=== PATIENT | female | born 1995 | race Caucasian/White ===

== ENCOUNTER 2017-07-18 19:30 | Emergency (ER) | payer SELFPAY ==
[~2017-07-18] VITALS: Ht 157.5 cm; Wt 55.0 kg
[~2017-07-18 19:30] MED LIST: AZIT200S PO; Z.0.NO CURRENT MEDS
--- NOTE | 2017-07-18 19:48 | PD ---
HPI Chief Complaint: Psychiatric Symptoms Time Seen by Provider: 19:44 Travel History International Travel<30 days: No Contact w/Intl Traveler<30days: No History of Present Illness HPI Patient is a 22-year-old female presenting to the emergency department under [place] act for psychiatric evaluation. Patient broke up with her boyfriend today , she states it was a bad breakup. She reportedly told the boyfriend she was going to shoot herself. At that time patient had access to a firearm. Apparently the firearm has been removed from patient's custody. Patient denies any previous suicide attempt, she denies any psychiatric history. She further denies any drug or alcohol use. She has no complaints of pain today. Patient is on Depo-Provera, she is due for another injection in July. She denies any chance of . 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 She has no significant past medical history. Onset of symptoms is unknown. PFSH Past Medical History Medical History: Denies Significant Hx Past Surgical History Surgical History: No Previous Surgery Social History Alcohol Use: No Tobacco Use: No Substance Use: No Allergies-Medications (Allergen,Severity, Reaction): Coded Allergies: No Known Allergies (Verified Allergy, Mild, 03/09/07) nickel (Verified Allergy, Unknown, 07/18/17) Reported Meds & Prescriptions Reported Meds & Active Scripts Active Keflex (Cephalexin) 500 Mg Cap 500 Mg PO Q12H 7 Days Reported Depo-Provera Inj (Medroxyprogesterone Inj) 150 Mg/Ml Inj 150 Mg IM Q90D Review of Systems Except as stated in HPI: all other systems reviewed are Neg Psychiatric: Positive: Suicidal Ideations Physical Exam Narrative GENERAL: Well-developed, well-nourished, alert female. Presenting in no acute distress. SKIN: Warm and dry. HEAD: Atraumatic. Normocephalic. EYES: Pupils equal and round. No scleral icterus. No injection or drainage. ENT: No nasal bleeding or discharge. Mucous membranes pink and moist. NECK: Trachea midline. No JVD. CARDIOVASCULAR: Regular rate and rhythm. RESPIRATORY: No accessory muscle use. Clear to auscultation. Breath sounds equal bilaterally. GASTROINTESTINAL: Abdomen soft, non-tender, nondistended. Hepatic and splenic margins not palpable. MUSCULOSKELETAL: Extremities without clubbing, cyanosis, or edema. No obvious deformities. NEUROLOGICAL: Awake and alert. No obvious cranial nerve deficits. Motor grossly within normal limits. Five out of 5 muscle strength in the arms and legs. Normal speech. PSYCHIATRIC: Anxious mood and affect; insight and judgment normal. Data Data Last Documented VS Vital Signs Date Time Temp Pulse Resp B/P (MAP) Pulse Ox O2 Delivery O2 Flow Rate FiO2 07/18/17 19:50 98.4 105 18 125/86 (99) 100 Orders Orders Complete Blood Count With Diff (07/18/17 19:44) Comprehensive Metabolic Panel (07/18/17 19:44) Thyroid Stimulating Hormone (07/18/17 19:44) Urinalysis - C+S If Indicated (07/18/17:44) Psych Screen (07/18/17:44) Drug Screen, Random Urine (07/18/17 19:44) Alcohol (Ethanol) (07/18/17 19:44) Salicylates (Aspirin) (07/18/17 19:44) Tylenol (Acetaminophen) (07/18/17 19:44) Urine Culture (07/18/17 20:09) Cephalexin (Keflex) (07/18/17 21:30) Labs Laboratory Tests Test 07/18/17 20:02 07/18/17 20:09 White Blood Count 12.0 TH/MM3 Red Blood Count 4.66 MIL/MM3 Hemoglobin 13.5 GM/DL Hematocrit 40.8 % Mean Corpuscular Volume 87.4 FL Mean Corpuscular Hemoglobin 28.9 PG Mean Corpuscular Hemoglobin Concent 33.1 % Red Cell Distribution Width 13.2 % Platelet Count 289 TH/MM3 Mean Platelet Volume 9.4 FL Neutrophils (%) (Auto) 77.9 % Lymphocytes (%) (Auto) 16.0 % Monocytes (%) (Auto) 5.3 % Eosinophils (%) (Auto) 0.2 % Basophils (%) (Auto) 0.6 % Neutrophils # (Auto) 9.3 TH/MM3 Lymphocytes # (Auto) 1.9 TH/MM3 Monocytes # (Auto) 0.6 TH/MM3 Eosinophils # (Auto) 0.0 TH/MM3 Basophils # (Auto) 0.1 TH/MM3 CBC Comment DIFF FINAL Differential Comment Blood Urea Nitrogen 5 MG/DL Creatinine 0.74 MG/DL Random Glucose 93 MG/DL Total Protein 8.1 GM/DL Albumin 4.3 GM/DL Calcium Level 9.2 MG/DL Alkaline Phosphatase 97 U/L Aspartate Amino Transf (AST/SGOT) 24 U/L Alanine Aminotransferase (ALT/SGPT) 32 U/L Total Bilirubin 0.6 MG/DL Sodium Level 141 MEQ/L Potassium Level 3.7 MEQ/L Chloride Level 109 MEQ/L Carbon Dioxide Level 22.1 MEQ/L Anion Gap 10 MEQ/L Estimat Glomerular Filtration Rate 98 ML/MIN Thyroid Stimulating Hormone 3rd Gen 2.230 uIU/ML Salicylates Level LESS THAN 1.7 MG/DL Acetaminophen Level LESS THAN 2.0 MCG/ML Ethyl Alcohol Level LESS THAN 3 MG/DL Urine Color YELLOW Urine Turbidity CLOUDY Urine pH 7.5 Urine Specific [place] 1.013 Urine Protein NEG mg/dL Urine Glucose (UA) NEG mg/dL Urine Ketones NEG mg/dL Urine Occult Blood NEG Urine Nitrite POS Urine Bilirubin NEG Urine Urobilinogen LESS THAN 2.0 MG/DL Urine Leukocyte Esterase MOD Urine RBC 6 /hpf Urine WBC 14 /hpf Urine Squamous Epithelial Cells 1 /hpf Urine Amorphous Sediment OCC Urine Bacteria MANY /hpf Urine Mucus MOD /lpf Microscopic Urinalysis Comment CULTURE INDICATED Urine Opiates Screen NEG Urine Barbiturates Screen NEG Urine Amphetamines Screen NEG Urine Benzodiazepines Screen NEG Urine Cocaine Screen NEG Urine Cannabinoids Screen NEG MDM Medical Decision Making Medical Screen Exam Complete: Yes Emergency Medical Condition: Yes Interpretation(s) Laboratory Tests Test 07/18/17 20:02 07/18/17 20:09 White Blood Count 12.0 TH/MM3 Red Blood Count 4.66 MIL/MM3 Hemoglobin 13.5 GM/DL Hematocrit 40.8 % Mean Corpuscular Volume 87.4 FL Mean Corpuscular Hemoglobin 28.9 PG Mean Corpuscular Hemoglobin Concent 33.1 % Red Cell Distribution Width 13.2 % Platelet Count 289 TH/MM3 Mean Platelet Volume 9.4 FL Neutrophils (%) (Auto) 77.9 % Lymphocytes (%) (Auto) 16.0 % Monocytes (%) (Auto) 5.3 % Eosinophils (%) (Auto) 0.2 % Basophils (%) (Auto) 0.6 % Neutrophils # (Auto) 9.3 TH/MM3 Lymphocytes # (Auto) 1.9 TH/MM3 Monocytes # (Auto) 0.6 TH/MM3 Eosinophils # (Auto) 0.0 TH/MM3 Basophils # (Auto) 0.1 TH/MM3 CBC Comment DIFF FINAL Differential Comment Blood Urea Nitrogen 5 MG/DL Creatinine 0.74 MG/DL Random Glucose 93 MG/DL Total Protein 8.1 GM/DL Albumin 4.3 GM/DL Calcium Level 9.2 MG/DL Alkaline Phosphatase 97 U/L Aspartate Amino Transf (AST/SGOT) 24 U/L Alanine Aminotransferase (ALT/SGPT) 32 U/L Total Bilirubin 0.6 MG/DL Sodium Level 141 MEQ/L Potassium Level 3.7 MEQ/L Chloride Level 109 MEQ/L Carbon Dioxide Level 22.1 MEQ/L Anion Gap 10 MEQ/L Estimat Glomerular Filtration Rate 98 ML/MIN Thyroid Stimulating Hormone 3rd Gen 2.230 uIU/ML Salicylates Level LESS THAN 1.7 MG/DL Acetaminophen Level LESS THAN 2.0 MCG/ML Ethyl Alcohol Level LESS THAN 3 MG/DL Urine Color YELLOW Urine Turbidity CLOUDY Urine pH 7.5 Urine Specific [place] 1.013 Urine Protein NEG mg/dL Urine Glucose (UA) NEG mg/dL Urine Ketones NEG mg/dL Urine Occult Blood NEG Urine Nitrite POS Urine Bilirubin NEG Urine Urobilinogen LESS THAN 2.0 MG/DL Urine Leukocyte Esterase MOD Urine RBC 6 /hpf Urine WBC 14 /hpf Urine Squamous Epithelial Cells 1 /hpf Urine Amorphous Sediment OCC Urine Bacteria MANY /hpf Urine Mucus MOD /lpf Microscopic Urinalysis Comment CULTURE INDICATED Urine Opiates Screen NEG Urine Barbiturates Screen NEG Urine Amphetamines Screen NEG Urine Benzodiazepines Screen NEG Urine Cocaine Screen NEG Urine Cannabinoids Screen NEG Vital Signs Date Time Temp Pulse Resp B/P (MAP) Pulse Ox O2 Delivery O2 Flow Rate FiO2 07/18/17 19:50 98.4 105 18 125/86 (99) 100 Differential Diagnosis Suicidal ideations versus depression versus psychosis versus mood disorder versus other Narrative Course Patient is a 22-year-old female presented to emergency department under Da Silva act for psychiatric evaluation secondary to making suicidal statements to her newly ex-boyfriend. Patient is tearful and anxious on arrival. 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 Mental health screening discussed with the patient. Psychiatric screen ordered. Labs reviewed, no acute findings in a fight with the exception of the urinalysis that was nitrite positive UTI. Patient was given a dose of Keflex now, she was given a prescription to complete the full course of antibiotics should she be discharged. Patient is medically cleared for psych eval. Diagnosis Primary Impression: Medical clearance for psychiatric admission Additional Impression: Urinary tract infection Qualified Codes: N39.0 - Urinary tract infection, site not specified; R31.9 - Hematuria, unspecified Med/Other Pt SpecificInfo: Prescription(s) given Scripts Cephalexin (Keflex) 500 Mg Cap 500 MG PO Q12H for Infection for 7 Days, #14 CAP 0 Refills Prov: Na Jackson 07/18/17 Condition: Stable Na Jackson Jul 18, 2017 19:48
[2017-07-18 19:50] VITALS: BP 125/86; PULSE 105; RESP 18; TEMP 98.4; O2SAT 100
[2017-07-18] MEDS ORDERED: DEPO150I IM (19:57)
[2017-07-18 20:44] LABS: AUTOMATED NEUTROPHIL # 9.3 TH/MM3 (1.8-7.7); BASOPHIL # 0.1 TH/MM3 (0-0.2); BASOPHIL % 0.6 % (0.0-2.0); EOSINOPHIL % 0.2 % (0.0-4.0); HEMATOCRIT 40.8 % (35.0-46.0); HEMOGLOBIN 13.5 GM/DL (11.6-15.3); LYMPHOCYTE # 1.9 TH/MM3 (1.0-4.8); MEAN CELL VOLUME 87.4 FL (80.0-100.0); MEAN CORPUSCULAR HEMOGLOBIN 28.9 PG (27.0-34.0); MEAN CORPUSCULAR HGB CONC 33.1 % (32.0-36.0); MEAN PLATELET VOLUME 9.4 FL (7.0-11.0); MONO % 5.3 % (0.0-8.0); MONOCYTE # 0.6 TH/MM3 (0-0.9); NEUT % 77.9 % (16.0-70.0); PLATELET COUNT 289 TH/MM3 (150-450); RED BLOOD COUNT 4.66 MIL/MM3 (4.00-5.30); RED CELL DISTRIBUTION WIDTH 13.2 % (11.6-17.2)
[2017-07-18 20:55] LABS: AMORPHOUS SEDIMENT, URINE OCC; BACTERIA, URINE MANY /hpf; BILIRUBIN, URINE NEG (NEG); BLOOD, URINE NEG (NEG); GLUCOSE,URINE NEG (NEG); KETONE, URINE NEG (NEG); MUCUS URINE MOD /lpf (OCC); NITRITE,URINE POS (NEG); PH, URINE 7.5 (5.0-8.5); SQUAMOUS EPITHELIAL CELL URINE 1 /hpf (0-5); URINE COLOR YELLOW (YELLW/STRAW); URINE LEUKOCYTE ESTERASE MOD (NEG)
[2017-07-18 21:02] LABS: ALBUMIN 4.3 GM/DL (3.4-5.0); AST (GOT) 24 U/L (15-37); BICARBONATE 22.1 MEQ/L (21.0-32.0); BLOOD UREA NITROGEN 5 MG/DL (7-18); CALCIUM 9.2 MG/DL (8.5-10.1); CHLORIDE 109 MEQ/L (98-107); CREATININE 0.74 MG/DL (0.50-1.00); GLOMERULAR FILTRATION RATE 98 ML/MIN (>89); GLUCOSE,RANDOM 93 MG/DL (74-106); SODIUM (NA) 141 MEQ/L (136-145)
[2017-07-18 21:13] LABS: ALKALINE PHOSPHATASE 97 U/L (45-117); ALT (GPT) 32 U/L (10-53); TOTAL BILIRUBIN ADULT 0.6 MG/DL (0.2-1.0); TOTAL PROTEIN 8.1 GM/DL (6.4-8.2)
[2017-07-18 21:15] LABS: ACETAMINOPHEN LESS THAN 2.0 MCG/ML (10.0-30.0)
[2017-07-18] MEDS ORDERED: CEPH-460 PO (21:19)
[2017-07-18] MEDS: CEPHALEXIN MONOHYDRATE 500 MG CAP PO ONE (21:30)
--- NOTE | 2017-07-18 23:29 | PD ---
Physical Exam Narrative Patient was seen by ED physician and psychiatric team. Data Data Last Documented VS Vital Signs Date Time Temp Pulse Resp B/P (MAP) Pulse Ox O2 Delivery O2 Flow Rate FiO2 07/18/17 19:50 98.4 105 18 125/86 (99) 100 Orders Orders Complete Blood Count With Diff (07/18/17 19:44) Comprehensive Metabolic Panel (07/18/17 19:44) Thyroid Stimulating Hormone (07/18/17 19:44) Urinalysis - C+S If Indicated (07/18/17 19:44) Psych Screen (07/18/17 19:44) Drug Screen, Random Urine (07/18/17 19:44) Alcohol (Ethanol) (07/18/17 19:44) Salicylates (Aspirin) (07/18/17 19:44) Tylenol (Acetaminophen) (07/18/17 19:44) Urine Culture (07/18/17 20:09) Cephalexin (Keflex) (07/18/17 21:30) Labs Laboratory Tests Test 07/18/17 20:02 07/18/17 20:09 White Blood Count 12.0 TH/MM3 Red Blood Count 4.66 MIL/MM3 Hemoglobin 13.5 GM/DL Hematocrit 40.8 % Mean Corpuscular Volume 87.4 FL Mean Corpuscular Hemoglobin 28.9 PG Mean Corpuscular Hemoglobin Concent 33.1 % Red Cell Distribution Width 13.2 % Platelet Count 289 TH/MM3 Mean Platelet Volume 9.4 FL Neutrophils (%) (Auto) 77.9 % Lymphocytes (%) (Auto) 16.0 % Monocytes (%) (Auto) 5.3 % Eosinophils (%) (Auto) 0.2 % Basophils (%) (Auto) 0.6 % Neutrophils # (Auto) 9.3 TH/MM3 Lymphocytes # (Auto) 1.9 TH/MM3 Monocytes # (Auto) 0.6 TH/MM3 Eosinophils # (Auto) 0.0 TH/MM3 Basophils # (Auto) 0.1 TH/MM3 CBC Comment DIFF FINAL Differential Comment Blood Urea Nitrogen 5 MG/DL Creatinine 0.74 MG/DL Random Glucose 93 MG/DL Total Protein 8.1 GM/DL Albumin 4.3 GM/DL Calcium Level 9.2 MG/DL Alkaline Phosphatase 97 U/L Aspartate Amino Transf (AST/SGOT) 24 U/L Alanine Aminotransferase (ALT/SGPT) 32 U/L Total Bilirubin 0.6 MG/DL Sodium Level 141 MEQ/L Potassium Level 3.7 MEQ/L Chloride Level 109 MEQ/L Carbon Dioxide Level 22.1 MEQ/L Anion Gap 10 MEQ/L Estimat Glomerular Filtration Rate 98 ML/MIN Thyroid Stimulating Hormone 3rd Gen 2.230 uIU/ML Salicylates Level LESS THAN 1.7 MG/DL Acetaminophen Level LESS THAN 2.0 MCG/ML Ethyl Alcohol Level LESS THAN 3 MG/DL Urine Color YELLOW Urine Turbidity CLOUDY Urine pH 7.5 Urine Specific [place] 1.013 Urine Protein NEG mg/dL Urine Glucose (UA) NEG mg/dL Urine Ketones NEG mg/dL Urine Occult Blood NEG Urine Nitrite POS Urine Bilirubin NEG Urine Urobilinogen LESS THAN 2.0 MG/DL Urine Leukocyte Esterase MOD Urine RBC 6 /hpf Urine WBC 14 /hpf Urine Squamous Epithelial Cells 1 /hpf Urine Amorphous Sediment OCC Urine Bacteria MANY /hpf Urine Mucus MOD /lpf Microscopic Urinalysis Comment CULTURE INDICATED Urine Opiates Screen NEG Urine Barbiturates Screen NEG Urine Amphetamines Screen NEG Urine Benzodiazepines Screen NEG Urine Cocaine Screen NEG Urine Cannabinoids Screen NEG MDM Supervised Visit with DAIANA: Yes Narrative Course Patient was medically cleared by ED physician and cleared by psychiatric team to be discharged. Diagnosis Primary Impression: Medical clearance for psychiatric admission Additional Impression: Urinary tract infection Qualified Codes: N39.0 - Urinary tract infection, site not specified; R31.9 - Hematuria, unspecified Patient Instructions: General Instructions Additional Instruction: Take Keflex as directed. Follow-up with personal physician. Scripts Cephalexin (Keflex) 500 Mg Cap 500 MG PO Q12H for Infection for 7 Days, #14 CAP 0 Refills Prov: Na Jackson 07/18/17 Disposition: 01 DISCHARGE HOME Condition: Stable Arvind Gilman MD Jul 18, 2017 23:28
== END 2017-07-19 00:04 | disposition home or self-care (01) ==
LOC: NEPJ 19:30
DX: N39.0 Urinary tract infection, site not specified (principal); R31.9 Hematuria, unspecified; B96.1 Klebsiella pneumoniae [K. pneumoniae] as the cause of diseases classified elsewhere; Z79.899 Other long term (current) drug therapy
CPT/HCPCS: 80053; 80307; 81001; 84443; 85025; 87077; 87086; 87186; 99283